=== PATIENT | female | born 1980 | race Caucasian/White ===

== ENCOUNTER 2021-08-17 11:49 | Inpatient (IN) | payer SELFPAY ==
[2021-08-17 12:25] VITALS: BP 124/77; PULSE 94; RESP 17; TEMP 36.9; O2SAT 99
[2021-08-17 12:26] VITALS: BMI 27.8
[2021-08-17] MEDS: OLANZapine 5 mg ODT PO (12:34)
[2021-08-17 13:38] VITALS: BP 104/68; PULSE 58; RESP 17; TEMP 36.9; O2SAT 100
[2021-08-17 20:04] VITALS: BP 99/66; PULSE 92; RESP 18; TEMP 36.6; O2SAT 100
[2021-08-18 06:00] VITALS: BP 98/86; PULSE 71; RESP 15; TEMP 36.6; O2SAT 98
[2021-08-18] MEDS: levoFLOXacin 500 mg Tablet PO (06:38)
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
[2021-08-18 14:00] VITALS: BP 118/80; PULSE 88; RESP 17; TEMP 36.3; O2SAT 96
[2021-08-18 19:49] VITALS: BP 112/76; PULSE 96; RESP 20; TEMP 36.8; O2SAT 100
[2021-08-18] MEDS: hyDROXYzine 25 mg Capsule 50 MG PO (20:13)
[2021-08-18] MEDS: acetaminophen 325 mg Tablet 650 MG PO (20:13)
[2021-08-18] MEDS: trazodone 50 mg Tablet PO (21:13)
--- NOTE | 2021-08-18 22:04 | PC.NURSE ---
Fainting Patient was up by the nurses station on the phone. When she got off of the phone she alerted staff she could stand up because she fell like she was going to faint. Security was by the nurses station with a wheelchair. While RETAIL SERVICE SPECIALIST, ADDRESSOGRAPH OPERATOR, and security attempted to help her to wheelchair patient fainted. All staff was able to get her into the wheelchair without her falling. As soon as pt was in wheelchair she woke up. She was unconscious for a few seconds. Once back to pt room she felt nauseated and had extra saliva in her mouth which she spit out. ADDRESSOGRAPH OPERATOR and RETAIL SERVICE SPECIALIST helped her into bed. Pt ask what happened as she could not recall. Vitals were obtained and documented. Pt was given a snack and water to drink. Provider notified.
[2021-08-18 22:11] VITALS: BP 92/61; PULSE 70; RESP 16; O2SAT 99
[2021-08-19 06:00] VITALS: BP 94/68; PULSE 81; RESP 20; TEMP 36.6; O2SAT 99
[2021-08-19] MEDS: levoFLOXacin 500 mg Tablet PO (06:05)
--- NOTE | 2021-08-19 08:06 | PC.NURSE ---
C/O FEELING DIZZY DENIES ALL DURING ASSESSMENT. ASSISTED BACK TO BED, PT GIVEN ICE WATER REQUESTED.
[2021-08-19] MEDS: acetaminophen 325 mg Tablet 650 MG PO (12:57)
[2021-08-19 14:00] VITALS: BP 103/65; PULSE 81; RESP 18; TEMP 36.6; O2SAT 99
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
[2021-08-19 20:33] VITALS: BP 101/71; PULSE 93; RESP 18; TEMP 37.1; O2SAT 99
[2021-08-19] MEDS: hyDROXYzine 25 mg Capsule 50 MG PO (21:25)
[2021-08-20 06:00] VITALS: BP 104/68; PULSE 65; RESP 20; TEMP 37; O2SAT 100
[2021-08-20] MEDS: levoFLOXacin 500 mg Tablet PO (06:12)
--- NOTE | 2021-08-20 11:49 | PC.NURSE ---
PT IS CALM AND COOPERATIVE THIS MORNING. A&OX4. DENIES ANY SI/HI AND AVH. WITHDRAW IN TO ROOM AT THIS TIME BUT STATES THAT SHE USUALLY WORKS A NIGHSHIFT THEREFORE IS USED TO SLEEPING THROUGHOUT MORNING.
[2021-08-20] MEDS: hyDROXYzine 25 mg Capsule 50 MG PO (13:18)
[2021-08-20 14:00] VITALS: BP 125/79; PULSE 89; RESP 19; TEMP 36.6; O2SAT 98
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
[2021-08-20 16:03] VITALS: BP 125/79; PULSE 89; RESP 19; TEMP 36.6; O2SAT 98
== END 2021-08-20 17:45 | disposition home or self-care (01) | DRG 885 ==
PROVIDERS: Admitting Provider Psychiatry & Neurology Psychiatry; Visit Provider Psychiatry & Neurology Psychiatry
DX: F33.9 Major depressive disorder, recurrent, unspecified (principal); R45.851 Suicidal ideations; F60.9 Personality disorder, unspecified; Z86.59 Personal history of other mental and behavioral disorders; F17.210 Nicotine dependence, cigarettes, uncomplicated; Z62.810 Personal history of physical and sexual abuse in childhood; Z63.0 Problems in relationship with spouse or partner
CPT/HCPCS: 97150; 97165